=== PATIENT | female | born 1980 | race Two or more races ===

== ENCOUNTER 2022-05-18 07:30 | Outpatient (CLI) | payer OTHER | END 2022-05-18 07:32 | disposition home or self-care (01) | LOC: NUCLEAR 07:30 | PROVIDERS: ATTEND Internal Medicine | DX: J45.909 Unspecified asthma, uncomplicated (principal); I87.2 Venous insufficiency (chronic) (peripheral); Z13.6 Encounter for screening for cardiovascular disorders; G35 Multiple sclerosis; R00.2 Palpitations; R53.83 Other fatigue; E66.3 Overweight | CPT/HCPCS: 78452; 93017; A9500; J1250 ==